=== PATIENT | female | born 1960 | race African-American/Black ===

== ENCOUNTER 2019-01-29 23:34 | Emergency (ER) | payer MEDICARE, MEDICAID ==
[~2019-01-29] VITALS: Ht 170.2 cm; Wt 65.8 kg
[~2019-01-29 23:34] MED LIST: BACTRIM DS TAB1 EAC1 ORAL; BENADRYL25 MG PO; CYCLOBENZAPRINE10 MG ORAL; IBUPROFEN600 MG ORAL; MEDROL DOSEPAK4 MG ORAL; PANTOPRAZOLE SO40 MG ORAL; PREDNISONE20 MG ORAL; REGLAN10 M1 ORAL; SYNTHROID50 MCG ORAL; SYNTHROID88 MCG ORAL; VIBRAMYCIN100 MG ORAL; VICODIN 5-5001 EACH PO; ZANTAC150 MG PO
--- NOTE | 2019-01-30 00:42 | NUR ---
ED Nurse Note: Walk-in patient with complaints of rash on posterior neck. Patient reports recent travel to hot [place] area.
[2019-01-30 00:43] VITALS: BP 126/69
[2019-01-30] MEDS ORDERED: CLINDAMYCIN HC300 MG ORAL (01:29)
[2019-01-30] MEDS ORDERED: MUPIROCIN22 GM TOPIC (01:29)
[2019-01-30] MEDS ORDERED: BENADRYL25 MG ORAL (01:29)
[2019-01-30] MEDS ORDERED: Clindamycin 150mg cap ORAL ONE (01:30)
--- NOTE | 2019-01-30 01:30 | Emergency Room Report ---
History of Present Illness General Chief Complaint: Skin Rash/Abscess Source: Patient Present Illness HPI This is a 58-year-old female with no significant past medical history. She presents with a rash to the back of her neck. Onset for about a week. Initially history little bumps. Is been itchy. No pain. No fever chills. Now is getting worse. [id number] topical medication not helping. Did not wear any jewelry like necklaces before this happened. This occurred after getting back from [place]. Allergies: Coded Allergies: METRONIDAZOLE (Verified Allergy, Severe, rash and itchy, 09/28/12) METRONIDAZOLE HCL (Verified Allergy, Severe, rash and itchy, 09/28/12) SULFA (SULFONAMIDE ANTIBIOTICS) (Verified Allergy, Severe, Rash, 03/30/16) Patient History Past Medical History: see triage record, old chart reviewed Past Surgical History: none Pertinent Family History: none Social History: Denies: smoking Now: No Immunizations: other Reviewed Nursing Documentation: PMH: Agreed; PSxH: Agreed Nursing Documentation-PMH Past Medical History: No History, Except For Hx Gastrointestinal Problems: Yes - GERD Review of Systems Eye: Denies: eye pain, blurred vision ENT: Denies: ear pain, nose congestion, throat swelling Respiratory: Denies: cough, shortness of breath Cardiovascular: Denies: chest pain, palpitations Gastrointestinal: Denies: abdominal pain, diarrhea, nausea, vomiting Musculoskeletal: Denies: back pain, joint pain Skin: Reports: rash Neurological: Denies: headache, numbness Endocrine: Denies: increased thirst, increased urine Hematologic/Lymphatic: Denies: easy bruising All Other Systems: negative except mentioned in HPI Physical Exam Vital Signs Date Time Temp Pulse Resp B/P (MAP) Pulse Ox O2 Delivery O2 Flow Rate FiO2 01/30/19 00:31 97.5 73 18 126/69 (88) 98 Room Air Vitals normal Sp02 EP Interpretation: reviewed, normal General Appearance: well appearing, no apparent distress, alert Head: normocephalic, atraumatic Eyes: bilateral eye PERRL, bilateral eye EOMI ENT: hearing grossly normal, normal pharynx Neck: full range of motion, supple, no meningismus, other - She has raised pimply maculopapular rash on the nape of her neck. Across midline. No drainage. Respiratory: chest non-tender, lungs clear, normal breath sounds Cardiovascular #1: regular rate, rhythm, no murmur Gastrointestinal: normal bowel sounds, non tender, no mass, no organomegaly, no bruit, non-distended Musculoskeletal: back normal, gait/station normal, normal range of motion Psychiatric: mood/affect normal Medical Decision Making Diagnostic Impression: Primary Impression: Cellulitis, neck ER Course Patient with cellulitis of the neck. Across midline so making zoster unlikely. No evidence of any abscess or necrotizing fasciitis. Will discharge home. Last Vital Signs Date Time Temp Pulse Resp B/P (MAP) Pulse Ox O2 Delivery O2 Flow Rate FiO2 01/30/19 00:43 97.5 89 18 126/69 98 Room Air Status: improved Disposition: HOME, SELF-CARE Condition: Stable Scripts Mupirocin* (MUPIROCIN*) 22 Gm Oint...g. 1 APPLIC TOPIC THREE TIMES A DAY, #22 GM Prov: Kenny Saunders MD 01/30/19 Diphenhydramine Hcl* (BENADRYL*) 25 Mg Capsule 50 MG ORAL Q6H PRN for Itching, #30 CAP Prov: Kenny Saunders MD 01/30/19 Clindamycin Hcl (CLINDAMYCIN HCL) 300 Mg Capsule 300 MG ORAL THREE TIMES A DAY, #21 CAP Prov: Kenny Saunders MD 01/30/19 Additional Instructions: Keep wound clean. Follow-up with your doctor in 7 days. Return if worse. Kenny Saunders MD Jan 30, 2019 01:30
--- NOTE | 2019-01-30 01:47 | NUR ---
ED Nurse Note: Patient tolerated medication well. Patient cleared for discharge by ERMD. Patient verbalized understanding of discharge instructions. Patient ID band removed. Patient departed with all belongings.
[2019-01-30 01:49] VITALS: BP 126/69
== END 2019-01-30 01:46 | disposition home or self-care (01) ==
LOC: EMR 01-30 00:41
DX: L03.221 Cellulitis of neck (principal); K21.9 Gastro-esophageal reflux disease without esophagitis; Z88.2 Allergy status to sulfonamides; Z88.8 Allergy status to other drugs, medicaments and biological substances
CPT/HCPCS: 99282

== ENCOUNTER 2019-07-27 20:16 | Emergency (ER) | payer MEDICARE, MEDICAID ==
[~2019-07-27] VITALS: Ht 170.2 cm; Wt 68.0 kg
[~2019-07-27 20:16] MED LIST changes: +BENADRYL25 MG ORAL; +CLINDAMYCIN HC300 MG ORAL; +MUPIROCIN22 GM TOPIC
[2019-07-27 20:30] VITALS: BP 132/90
[2019-07-27] MEDS ORDERED: Ketorolac 60mg Inj IM ONE (20:30)
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
--- NOTE | 2019-07-27 20:35 | NUR ---
ED Nurse Note: Pt taken to ct by tech.
--- NOTE | 2019-07-27 20:40 | NUR ---
ED Nurse Note: Pt returned from CT.
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
--- NOTE | 2019-07-27 21:21 | Diagnostic Imaging Report ---
EXAM: CT Maxillofacial Without Intravenous Contrast CLINICAL HISTORY: TRAUMA TECHNIQUE: Axial computed tomography images of the face without intravenous contrast. CTDI is 15.30 mGy and DLP is 333.80 mGy-cm. One or more of the following dose reduction techniques were used: automated exposure control, adjustment of the mA and/or kV according to patient size, use of iterative reconstruction technique. COMPARISON: None. FINDINGS: Bones/joints: Visualized calvarium is unremarkable. Zygomatic arches are intact. Lamina papyracea are intact. Mandibular condyles are in normal anatomic position. No acute mandibular fracture. Soft tissues: The soft tissues are grossly within normal limits. Orbits: The orbital rims including the inferior orbital rims are intact. Sinuses: [place] of the maxillary sinuses are unremarkable. No air- fluid levels. Nasal cavity/septum: Nasal bones are unremarkable. Other findings: Axial and coronal images were provided. IMPRESSION: No acute facial fracture is detected.
[2019-07-27] MEDS ORDERED: IBUPROFEN600 MG ORAL (21:50)
[2019-07-27] MEDS ORDERED: TRAMADOL HCL50 MG ORAL (21:50)
[2019-07-27 22:20] VITALS: BP 128/85
--- NOTE | 2019-07-27 22:20 | NUR ---
ER DISCHARGE NOTE: Patient is cleared to be discharged per ERMD, pt is aox4, on room air, with stable vital signs. pt was given dc and prescription instructions, pt was able to verbalize understanding, pt id band removed. pt is able to ambulate with steady gait. pt took all belongings.
== END 2019-07-27 22:20 | disposition home or self-care (01) ==
LOC: EMR 20:38
DX: S00.83XA Contusion of other part of head, initial encounter (principal); Y04.2XXA Assault by strike against or bumped into by another person, initial encounter; Y93.9 Activity, unspecified; Y92.810 Car as the place of occurrence of the external cause; Z88.2 Allergy status to sulfonamides; Z88.8 Allergy status to other drugs, medicaments and biological substances
CPT/HCPCS: 70486; 96372; 99284

== ENCOUNTER 2020-05-23 19:28 | Emergency (ER) | payer MEDICARE, MEDICAID ==
[~2020-05-23] VITALS: Ht 170.2 cm; Wt 63.5 kg
[~2020-05-23 19:28] MED LIST changes: +TRAMADOL HCL50 MG ORAL
[2020-05-23 19:44] VITALS: BP 146/95
[2020-05-23] MEDS ORDERED: Ketorolac 30mg Inj IV ONE (20:00)
--- NOTE | 2020-05-23 20:23 | Diagnostic Imaging Report ---
EXAM: XR Chest, 1 View CLINICAL HISTORY: PAIN TECHNIQUE: Frontal view of the chest. COMPARISON: No relevant prior studies available. FINDINGS: Lungs: Unremarkable. No consolidation. Pleural space: Unremarkable. No pneumothorax. Heart: Unremarkable. No cardiomegaly. Mediastinum: Unremarkable. Bones/joints: Unremarkable. IMPRESSION: Normal chest x-ray.
[2020-05-23 20:38] LABS: APPEARANCE,URINE CLEAR; BILIRUBIN, URINE NEGATIVE (NEGATIVE); COLOR,URINE PALE YELLOW; GLUCOSE, URINE (UA) NEGATIVE (NEGATIVE); KETONES,URINE NEGATIVE (NEGATIVE); LEUKOCYTE ESTERASE ,URINE NEGATIVE (NEGATIVE); NITRITE,URINE NEGATIVE (NEGATIVE); PH,URINE 7 (4.5-8.0); PROTEIN,URINE NEGATIVE (NEGATIVE); UROBILINOGEN,URINE NORMAL MG/DL (0.0-1.0)
[2020-05-23 20:41] LABS: BASOPHILS % (AUTO) 2.1 % (0.0-2.0); EOSINOPHILS % (AUTO) 0.9 % (0.0-3.0); HEMOGLOBIN 13.2 G/DL (12.0-16.0); LYMPHOCYTES % (AUTO) 30.9 % (20.0-45.0); MEAN CORPUSCULAR VOLUME 84 FL (80-99); MONOCYTES % (AUTO) 8.8 % (1.0-10.0); NEUTROPHILS % (AUTO) 57.4 % (45.0-75.0); PLATELET COUNT 242 K/UL (150-450); RED BLOOD COUNT 4.53 M/UL (4.20-5.40); RED CELL DISTRIBUTION WIDTH 14.5 % (11.6-14.8); WHITE BLOOD COUNT 5.7 K/UL (4.8-10.8)
--- NOTE | 2020-05-23 20:44 | Emergency Room Report ---
History of Present Illness General Chief Complaint: Headache Present Illness HPI 60-year-old female with history of hypothyroidism and chronic back pain currently taking medication here complaining of sudden onset of frontal headache radiating to the temporal and posterior neck that started while she was sleeping earlier today. Complains of dizziness however denies blurry vision, photophobia. Complains of nausea however denies vomiting. Has taken Dawn with minimal relief. Also complains of sudden onset of chest pressure without any radiation. Denies shortness of breath, abdominal pain, diarrhea, cough or congestion. Is neurovascularly intact. Denies unilateral generalized weakness. Denies tobacco smoke, drug use, alcohol intake. Allergies: Coded Allergies: METRONIDAZOLE (Verified Allergy, Severe, rash and itchy, 09/28/12) METRONIDAZOLE HCL (Verified Allergy, Severe, rash and itchy, 09/28/12) SULFA (SULFONAMIDE ANTIBIOTICS) (Verified Allergy, Severe, Rash, 03/30/16) COVID-19 Screening COVID-19 risk:Contact w/high r: No Has patient experienced alvarado: No COVID-19 Testing performed LEAD PROGRAMMER ANALYST: No Patient History Past Medical History: see triage record Past Surgical History: none Pertinent Family History: none Now: No Immunizations: UTD Reviewed Nursing Documentation: PMH: Agreed; PSxH: Agreed Nursing Documentation-PMH Hx Gastrointestinal Problems: Yes - GERD Review of Systems All Other Systems: negative except mentioned in HPI Physical Exam Vital Signs Date Time Temp Pulse Resp B/P (MAP) Pulse Ox O2 Delivery O2 Flow Rate FiO2 05/23/20 19:36 98.6 93 16 146/95 (112) 98 Room Air Sp02 EP Interpretation: reviewed, normal General Appearance: normal inspection, alert, no apparent distress, GCS 15 Head: normocephalic, atraumatic Eyes: normal eye exam, PERRL, EOMI, lids + conjunctiva normal, no hyphema, no racoon eyes ENT: normal ENT inspection, TMs + canals normal, oropharynx normal, no rivas signs Neck: trach midline, no bony tend, full range of motion without pain Respiratory: effort normal, no retractions, clear to auscultation, chest symmetrical, palpation of chest normal, speaking in full sentences Cardiovascular: regular rate, rhythm, no JVD Cardiovascular #2: 2+ radial (R), 2+ radial (L), 2+ dorsalis pedis (R), 2+ dorsalis pedis (L) Gastrointestinal: normal inspection, non-tender, non-distended, no rebound/guarding, normal bowel sounds, no bruit, no organomegaly Musculoskeletal: gait & station normal, strength & tone normal Skin: no rash Lymphatic: normal inspection Neurologic: oriented x3, sensory intact, motor strength/tone normal, normal speech Psychiatric: normal inspection, memory normal, mood normal, no suicidal/homicidal ideation Medical Decision Making PA Attestation All diagnoses and treatment plans were reviewed and discussed with my supervising physician Dr. Lynn Diagnostic Impression: Primary Impression: Headache above the eye region ER Course 60-year-old female with history of hypothyroidism and chronic back pain currently taking medication here complaining of sudden onset of frontal headache radiating to the temporal and posterior neck that started while she was sleeping earlier today. Complains of dizziness however denies blurry vision, photophobia. Complains of nausea however denies vomiting. Has taken Dawn with minimal relief. Also complains of sudden onset of chest pressure without any radiation. Denies shortness of breath, abdominal pain, diarrhea, cough or congestion. Is neurovascularly intact. Denies unilateral generalized weakness. Denies tobacco smoke, drug use, alcohol intake. Ddx considered but are not limited to: Migraine headache with aura, migraine headache without aura, tension headache, cluster headache, TBI, subarachnoid hemorrhage Vital signs: are WNL, pt. is afebrile H&PE are most consistent with: headache most likely secondary to migraine ORDERS: Head CT, chest pain order set, sumatriptan, zofran, excederine ER intervention: Toradol, Zofran, Reglan DISCHARGE: At this time pt. is stable for d/c to home. Will provide printed patient care instructions, and any necessary prescriptions. Care plan and follow up instructions have been discussed with the patient prior to discharge. Take medication as directed, follow-up with your primary care provider for further evaluation of headache, at this time no acute signs of ischemia noted however follow with primary doctor for further evaluation. If worsening symptoms return to the emergency room EKG Diagnostic Results Rate: normal Rhythm: NSR ST Segments: no acute changes Other Impression No acute ST changes ASA given to the pt in ED: No Chest X-Ray Diagnostic Results Chest X-Ray Diagnostic Results : Chest X-Ray Ordered: Yes # of Views/Limited/Complete: 1 View Indication: Chest Pain EP Interpretation: Yes Interpretation: no consolidation, no effusion, no pneumothorax, no acute car diopulmonary disease Impression: No acute disease Electronically Signed by: Laurel Moseley PA-C CT/MRI/US Diagnostic Results CT/MRI/US Diagnostic Results : Imaging Test Ordered: CT head no contrast Impression COMPARISON: No relevant prior studies available. FINDINGS: Brain: Unremarkable. No hemorrhage. No significant white matter disease. No edema. Ventricles: Unremarkable. No ventriculomegaly. There appears to be cavum septum pellucidum, a normal anatomic variant. Bones/joints: Unremarkable. No acute fracture. Soft tissues: Unremarkable. Sinuses: Unremarkable as visualized. No acute sinusitis. Mastoid air cells: Unremarkable as visualized. No mastoid effusion. IMPRESSION: No acute intracranial abnormality Last Vital Signs Date Time Temp Pulse Resp B/P (MAP) Pulse Ox O2 Delivery O2 Flow Rate FiO2 05/23/20 19:44 98.6 16 146/95 98 Room Air 05/23/20 19:36 93 Disposition: HOME, SELF-CARE Condition: Stable Referrals: NON PHYSICIAN (PCP) Patient Instructions: Migraine Headache Additional Instructions: Take medication as directed, follow-up with your primary care provider for further evaluation of headache, at this time no acute signs of ischemia noted however follow with primary doctor for further evaluation. If worsening symptoms return to the emergency room Laurel Godoy May 23, 2020 20:44
[2020-05-23 20:54] LABS: ANION GAP 7 mmol/L (5-15); BLOOD UREA NITROGEN 10 mg/dL (7-18); CALCIUM 9.3 MG/DL (8.5-10.1); CARBON DIOXIDE 28 MMOL/L (21-32); CHLORIDE 105 MMOL/L (98-107); CREATININE 0.9 MG/DL (0.55-1.30); POTASSIUM 4.1 MMOL/L (3.5-5.1); SODIUM 140 MMOL/L (136-145)
--- NOTE | 2020-05-23 20:54 | Diagnostic Imaging Report ---
EXAM: CT Head Without Intravenous Contrast CLINICAL HISTORY: DIZZY TECHNIQUE: Axial computed tomography images of the head/brain without intravenous contrast. CTDI is 53.4 mGy and DLP is 1012.9 mGy-cm. One or more of the following dose reduction techniques were used: automated exposure control, adjustment of the mA and/or kV according to patient size, use of iterative reconstruction technique. COMPARISON: No relevant prior studies available. FINDINGS: Brain: Unremarkable. No hemorrhage. No significant white matter disease. No edema. Ventricles: Unremarkable. No ventriculomegaly. There appears to be cavum septum pellucidum, a normal anatomic variant. Bones/joints: Unremarkable. No acute fracture. Soft tissues: Unremarkable. Sinuses: Unremarkable as visualized. No acute sinusitis. Mastoid air cells: Unremarkable as visualized. No mastoid effusion. IMPRESSION: No acute intracranial abnormality
[2020-05-23 20:58] LABS: ALANINE AMINOTRANSFERASE 20 U/L (12-78); ALBUMIN 4.4 G/DL (3.4-5.0); ALBUMIN/GLOBULIN RATIO 1.3 (1.0-2.7); ALKALINE PHOSPHATASE 80 U/L (46-116); ASPARTATE AMINO TRANSFERASE 17 U/L (15-37); BILIRUBIN,TOTAL 0.2 MG/DL (0.2-1.0)
[2020-05-23] MEDS ORDERED: ZOFRAN4 M1 ORAL (21:08)
[2020-05-23] MEDS ORDERED: IMITREX50 MG ORAL (21:08)
[2020-05-23] MEDS ORDERED: EXCEDRIN EXTRA1 EAC1 PO (21:08)
[2020-05-23] MEDS ORDERED: Metoclopramide 10mg/2ml Inj IVP ONE (21:15)
[2020-05-23 21:25] VITALS: BP 140/70
== END 2020-05-23 21:25 | disposition home or self-care (01) ==
LOC: EMR 20:00
DX: R51.9 Headache, unspecified (principal); Z88.2 Allergy status to sulfonamides; Z88.8 Allergy status to other drugs, medicaments and biological substances
CPT/HCPCS: 36415; 70450; 71045; 80053; 81003; 84484; 85025; 93005; 96374; 96375; 99284; J1885; J2405